=== PATIENT | male | born 1970 | race Caucasian/White ===

== ENCOUNTER 2019-07-06 19:10 | Observation (INO) | payer BC, OTHER ==
--- NOTE | 2019-07-06 20:31 | EDM.PDOC ---
ED HPI GENERAL MEDICAL PROBLEM - General Chief Complaint: Head Injury Time Seen by Provider: 07/06/19 19:20 Source of Information: Reports: Patient History Limitations: Reports: Altered Mental Status, Intoxication - History of Present Illness INITIAL COMMENTS - FREE TEXT/NARRATIVE: c/o head injury pt drinking alcohol, a little per pt, a lot per his friends, dropped off by a friend, pt and friend deny other drug use, THC denied pt was reaching for a door know when he lost his balance and fell backward, landing on his buttock, then his head hit the floor as he fell backward, LOC x 4 -5 min, "out cold", initial report of transient apnea denies by friend who had witnessed the event pt speaking slowly, not oriented lives alone, works as a welder fitter helper - Related Data Allergies Allergy/AdvReac Type Severity Reaction Status Date / Time Penicillins Allergy Rash Verified 07/06/19 19:17 Home Meds: Home Meds Losartan Potassium 50 mg DAILY 07/06/19 [History] ED ROS GENERAL - Review of Systems Review Of Systems: See Below Constitutional: Reports: No Symptoms HEENT: Reports: No Symptoms Respiratory: Reports: No Symptoms Cardiovascular: Reports: No Symptoms Endocrine: Reports: No Symptoms GI/Abdominal: Reports: No Symptoms : Reports: No Symptoms Musculoskeletal: Reports: No Symptoms Skin: Reports: No Symptoms Neurological: Reports: Headache, Other (headache no severe, no n/v) Psychiatric: Reports: No Symptoms Hematologic/Lymphatic: Reports: No Symptoms Immunologic: Reports: No Symptoms ED EXAM, HEAD INJURY - Physical Exam Exam: See Below Exam Limited By: Altered Mental Status General Appearance: Alert, WD/WN Head: Other (edema 6 x 6 x 1 cm with superficial abrasion at occiput, face NT) Eyes: Bilateral Eye: EOMI, PERRL Ears: Normal External Exam, Normal Canal, Hearing Grossly Normal Nose: Normal Inspection, Normal Mucousa, No Blood Throat/Mouth: Normal Inspection, Normal Lips, Normal Teeth, Normal Gums, Normal Oropharynx, Normal Voice, No Airway Compromise Neck: Non-Tender, Full Range of Motion, Normal Alignment, Normal Inspection. No : Muscle Spasm, Stiff Neck Respiratory: No Respiratory Distress, Lungs Clear, Normal Breath Sounds, Chest Non-Tender Cardiovascular: Regular Rate, Rhythm, No Edema, No Gallop, No Murmur, No Rub GI/Abdominal Exam: Soft, Non-Tender, No Distention Back Exam: Normal Inspection, Full Range of Motion. No: CVA Tenderness (R), CVA Tenderness (L) Extremities: Normal Inspection, Normal Range of Motion, Non-Tender, No Pedal Edema Neurologic: No Motor/Sensory Deficits, Alert, Normal Mood/Affect, Other ( rambling speech, confusion, mixes up topics, talks complete sentences, does not know month or year or date, knows where he is) Skin: Normal Color, Warm/Dry - [place] Coma Score Best Eye Response ([place]): (4) Open Spontaneously Best Verbal Response (Rajwinder): (4) Confused Conversation Best Motor Response ([place]): (6) Obeys Commands [place] Total: 14 Course - Orders/Labs/Meds Orders: Active Orders 24 hr Category Date Time Status EKG Documentation Completion [RC] ASDIRECTED Care 07/06/19 19:27 Active Cervical Spine wo Cont [CT] Stat Exams 07/06/19 19:28 Taken Head wo Cont [CT] Stat Exams 07/06/19 19:28 Ordered DRUG SCREEN, URINE ALERE [URCHEM] Stat Lab 07/06/19 19:26 Ordered UA W/MICROSCOPIC [URIN] Stat Lab 07/06/19 19:26 Ordered EKG 12 Lead [EK] Routine Ther 07/06/19 19:26 Ordered Labs: Laboratory Tests 07/06/19 07/06/19 07/06/19 Range/Units 20:00 20:00 20:00 WBC 5.0 (4.5-12.0) X10-3/uL RBC 5.37 (4.30-5.75) x10(6)uL Hgb 16.1 (13.5-17.8) g/dL Hct 47.6 (30.0-51.3) % MCV 88.6 (80-96) fL MCH 30.0 (27.7-33.6) pg MCHC 33.8 (32.2-35.4) g/dL RDW 12.5 (11.5-15.5) % Plt Count 255 (125-369) X10(3)uL MPV 7.7 (7.4-10.4) fL Neut % (Auto) 56.1 (46-82) % Lymph % (Auto) 32.2 (13-37) % [place] % (Auto) 10.4 (4-12) % Eos % (Auto) 1 (1.0-5.0) % Baso % (Auto) 1 (0-2) % Neut # (Auto) 2.9 (1.6-8.3) # Lymph # (Auto) 1.6 (0.6-5.0) # [place] # (Auto) 0.5 (0.0-1.3) # Eos # (Auto) 0.0 (0.0-0.8) # Baso # (Auto) 0.0 (0.0-0.2) # PT 9.7 (9.0-11.1) sec INR 1.00 (1.00-1.24) Sodium 142 (135-145) mmol/L Potassium 4.0 (3.5-5.3) mmol/L Chloride 105 (100-110) mmol/L Carbon Dioxide 23 (21-32) mmol/L BUN 9 (7-18) mg/dL Creatinine 0.8 (0.70-1.30) mg/dL Est Cr Clr Drug Dosing TNP Estimated GFR (MDRD) > 60 (>60) BUN/Creatinine Ratio 11.3 (9-20) Glucose 90 (80-116) mg/dL Calcium 8.4 L (8.6-10.2) mg/dL Total Bilirubin 0.3 (0.1-1.3) mg/dL AST 20 (5-25) IU/L ALT 25 (12-36) U/L Alkaline Phosphatase 59 (56-112) IU/L Troponin I (4.0-60.3) pg/mL Total Protein 7.6 (6.0-8.0) g/dL Albumin 4.1 (3.5-5.2) g/dL Globulin 3.5 g/dL Albumin/Globulin Ratio 1.2 Ethyl Alcohol (<0.03) % 07/06/19 07/06/19 Range/Units 20:00 20:00 WBC (4.5-12.0) X10-3/uL RBC (4.30-5.75) x10(6)uL Hgb (13.5-17.8) g/dL Hct (30.0-51.3) % MCV (80-96) fL MCH (27.7-33.6) pg MCHC (32.2-35.4) g/dL RDW (11.5-15.5) % Plt Count (125-369) X10(3)uL MPV (7.4-10.4) fL Neut % (Auto) (46-82) % Lymph % (Auto) (13-37) % [place] % (Auto) (4-12) % Eos % (Auto) (1.0-5.0) % Baso % (Auto) (0-2) % Neut # (Auto) (1.6-8.3) # Lymph # (Auto) (0.6-5.0) # [place] # (Auto) (0.0-1.3) # Eos # (Auto) (0.0-0.8) # Baso # (Auto) (0.0-0.2) # PT (9.0-11.1) sec INR (1.00-1.24) Sodium (135-145) mmol/L Potassium (3.5-5.3) mmol/L Chloride (100-110) mmol/L Carbon Dioxide (21-32) mmol/L BUN (7-18) mg/dL Creatinine (0.70-1.30) mg/dL Est Cr Clr Drug Dosing Estimated GFR (MDRD) (>60) BUN/Creatinine Ratio (9-20) Glucose (80-116) mg/dL Calcium (8.6-10.2) mg/dL Total Bilirubin (0.1-1.3) mg/dL AST (5-25) IU/L ALT (12-36) U/L Alkaline Phosphatase (56-112) IU/L Troponin I 6.6 (4.0-60.3) pg/mL Total Protein (6.0-8.0) g/dL Albumin (3.5-5.2) g/dL Globulin g/dL Albumin/Globulin Ratio Ethyl Alcohol 0.23 H* (<0.03) % - Re-Assessments/Exams Free Text/Narrative Re-Assessment/Exam: 07/06/19 21:24 no fx on head and cervical CTs, no acute hemorrhage pt remains quite confused, rambles when speaking, requiring one assist as he staggered on his feet bathroom, then dumped out his urinal after forgetting that nursing wanted it back not a safe d/c, extend of concussion or duration of recovery unknown, pt informed 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 at least 48 hours, possibly longer will admit to observation bed Departure - Departure Time of Disposition: 20:32 Disposition: Home, Self-Care 01 Condition: Good Clinical Impression: Concussion with less than 1 hour loss of consciousness, Head injury, Scalp abrasion, Acute alcohol intoxication, Fall from standing, Left ventricular hypertrophy by electrocardiogram, Incomplete right bundle branch block (RBBB), Scalp hematoma - Discharge Information *PRESCRIPTION DRUG MONITORING PROGRAM REVIEWED*: Not Applicable *COPY OF PRESCRIPTION DRUG MONITORING REPORT IN PATIENT GARY: Not Applicable Referrals: Pillo Giordano MD [Primary Care Provider] - Forms: ED Department Discharge Sepsis Event Note - Focused Exam Date Exam was Performed: 07/06/19 Time Exam was Performed: 20:32 - My Orders Last 24 Hours: My Active Orders 07/06/19 19:26 DRUG SCREEN, URINE ALERE [URCHEM] Stat UA W/MICROSCOPIC [URIN] Stat EKG 12 Lead [EK] Routine 07/06/19 19:27 EKG Documentation Completion [RC] ASDIRECTED 07/06/19 19:28 Cervical Spine wo Cont [CT] Stat Head wo Cont [CT] Stat - Assessment/Plan Last 24 Hours: My Active Orders 07/06/19 19:26 DRUG SCREEN, URINE ALERE [URCHEM] Stat UA W/MICROSCOPIC [URIN] Stat EKG 12 Lead [EK] Routine 07/06/19 19:27 EKG Documentation Completion [RC] ASDIRECTED 07/06/19 19:28 Cervical Spine wo Cont [CT] Stat Head wo Cont [CT] Stat
[2019-07-06] MEDS ORDERED: Ondansetron 4 MG/2 ML SDV IV PRN (22:00)
[2019-07-06] MEDS ORDERED: Ketorolac 30 MG/ML SDV IVPUSH SCH (22:00)
[2019-07-07] MEDS: Ketorolac 30 MG/ML SDV IVPUSH SCH ×2 (01:15→06:26)
[2019-07-07] MEDS: Sodium Chloride 0.9% 10 ML Syringe FLUSH PRN ×2 (01:15→06:26)
[2019-07-07] MEDS ORDERED: Acetaminophen 500 MG Tab PO SCH (09:00)
[2019-07-07] MEDS ORDERED: Losartan 50 MG Tab PO SCH (09:00)
--- NOTE | 2019-07-07 10:54 | PCM.HP.2 ---
H&P History of Present Illness - General Date of Service: 07/07/19 Admit Problem/Dx: Fall, head injury, concussion - History of Present Illness Initial Comments - Free Text/Narative: From ER provider: c/o head injury, pt drinking alcohol, a little per pt, a lot per his friends, dropped off by a friend, pt and friend deny other drug use, THC denied. pt was reaching for a door know when he lost his balance and fell backward, landing on his buttock, then his head hit the floor as he fell backward, LOC x 4-5 min, "out cold", initial report of transient apnea denies by friend who had witnessed the event. pt speaking slowly, not oriented, lives alone, works as a welder/fabricator. Patient this morning remembers going to friends and drinking some but doesn't remember what happened to cause the event, does not remember being in the ER and woke up in hospital. Denies any headaches, nausea, vomiting. Back of his head, right elbow and chest are sore. A nurse was at the house where he fell and was giving sternal rubs. History of hypertension but no history of concussions. Has been ambulating to the bathroom on his own without difficulty walking. R occipital region of head Pain Score (Numeric/FACES): 1 - Related Data Allergies/Adverse Reactions: Allergies Allergy/AdvReac Type Severity Reaction Status Date / Time Penicillins Allergy Rash Verified 07/06/19 19:17 Home Medications: Home Meds Losartan Potassium 50 mg DAILY 07/06/19 [History] Past Medical History Cardiovascular History: Reports: Hypertension Other Cardiovascular History: Recently started BP medication. Neurological History: Reports: Concussion - Infectious Disease History Infectious Disease History: Reports: Chicken Pox - Past Surgical History HEENT Surgical History: Reports: Other (See Below) Other HEENT Surgeries/Procedures: [place] teeth extraction in 1997. Social & Family History - Family History Family Medical History: Noncontributory - Tobacco Use Smoking Status *Q: Never Smoker - Caffeine Use Caffeine Use: Reports: None - Alcohol Use Days Per Week of Alcohol Use: 1 Number of Drinks Per Day: 2 Total Drinks Per Week: 2 - Recreational Drug Use Recreational Drug Use: No H&P Review of Systems - Review of Systems: Review Of Systems: Comprehensive ROS is negative, except as noted in HPI. Exam - Exam Exam: See Below - Vital Signs Vital Signs: Last Vital Signs Temp 98.2 F 07/07/19 08:00 Pulse 70 07/07/19 08:00 Resp 16 07/07/19 08:00 BP 169/107 H 07/07/19 08:00 Pulse Ox 95 07/07/19 08:00 Weight: 203 lb 6.4 oz - Exam General: Alert, Oriented, Cooperative HEENT: PERRLA, Conjunctiva Clear, EACs Clear, EOMI, Hearing Intact, Mucosa Moist & [place], Nares Patent, Normal Nasal Septum, Posterior Pharynx Clear, TMs Clear, Other (Still swelling on right occiput, TTP. No ecchymosis.) Neck: Supple, Trachea Midline, Lymphadenopathy Lungs: Clear to Auscultation, Normal Respiratory Effort, Other (TTP along sternum but no ecchymosis) Cardiovascular: Regular Rate, Regular Rhythm, Normal S1, Normal S2 GI/Abdominal Exam: Normal Bowel Sounds, Soft, Non-Tender, No Organomegaly, No Distention (Male) Exam: Deferred Rectal (Males) Exam: Deferred Extremities: No Pedal Edema Peripheral Pulses: 2+: Radial (L), Radial (R), Posterior Tibial (L), Posterior Tibial (R), Dorsalis Pedis (L), Dorsalis Pedis (R) Skin: Warm, Dry, Ecchymosis (right elbow) Neurological: Cranial Nerves Intact, Strength Equal Bilateral, Normal Speech, Normal Tone, Sensation Intact - Patient Data Lab Results Last 24 hrs: Laboratory Results - last 24 hr 07/06/19 07/06/19 07/06/19 Range/Units 20:00 20:00 20:00 WBC 5.0 (4.5-12.0) X10-3/uL RBC 5.37 (4.30-5.75) x10(6)uL Hgb 16.1 (13.5-17.8) g/dL Hct 47.6 (30.0-51.3) % MCV 88.6 (80-96) fL MCH 30.0 (27.7-33.6) pg MCHC 33.8 (32.2-35.4) g/dL RDW 12.5 (11.5-15.5) % Plt Count 255 (125-369) X10(3)uL MPV 7.7 (7.4-10.4) fL Neut % (Auto) 56.1 (46-82) % Lymph % (Auto) 32.2 (13-37) % [place] % (Auto) 10.4 (4-12) % Eos % (Auto) 1 (1.0-5.0) % Baso % (Auto) 1 (0-2) % Neut # (Auto) 2.9 (1.6-8.3) # Lymph # (Auto) 1.6 (0.6-5.0) # [place] # (Auto) 0.5 (0.0-1.3) # Eos # (Auto) 0.0 (0.0-0.8) # Baso # (Auto) 0.0 (0.0-0.2) # PT 9.7 (9.0-11.1) sec INR 1.00 (1.00-1.24) Sodium 142 (135-145) mmol/L Potassium 4.0 (3.5-5.3) mmol/L Chloride 105 (100-110) mmol/L Carbon Dioxide 23 (21-32) mmol/L BUN 9 (7-18) mg/dL Creatinine 0.8 (0.70-1.30) mg/dL Est Cr Clr Drug Dosing TNP Estimated GFR (MDRD) > 60 (>60) BUN/Creatinine Ratio 11.3 (9-20) Glucose 90 (80-116) mg/dL Calcium 8.4 L (8.6-10.2) mg/dL Total Bilirubin 0.3 (0.1-1.3) mg/dL AST 20 (5-25) IU/L ALT 25 (12-36) U/L Alkaline Phosphatase 59 (56-112) IU/L Troponin I (4.0-60.3) pg/mL NT-Pro-B Natriuret Pep (<=125) pg/mL Total Protein 7.6 (6.0-8.0) g/dL Albumin 4.1 (3.5-5.2) g/dL Globulin 3.5 g/dL Albumin/Globulin Ratio 1.2 Urine Color (YELLOW) Urine Appearance (CLEAR) Urine pH (5.0-6.5) Ur Specific [place] (1.010-1.025) Urine Protein (NEGATIVE) mg/dL Urine Glucose (UA) (NORMAL) mg/dL Urine Ketones (NEGATIVE) mg/dL Urine Occult Blood (NEGATIVE) Urine Nitrite (NEGATIVE) Urine Bilirubin (NEGATIVE) Urine Urobilinogen (NEGATIVE) mg/dL Ur Leukocyte Esterase (NEGATIVE) Urine RBC (0-5) Urine WBC (0-5) Ur Squamous Epith Cells (NS,R,O) Urine Bacteria (NS) Urine Opiates Screen (NEGATIVE) Ur Oxycodone Screen (NEGATIVE) Ur Propoxyphene Screen (NEGATIVE) Ur Barbituates Screen (NEGATIVE) Ur Tricyclics Screen (NEGATIVE) Ur Phencyclidine Scrn (NEGATIVE) Ur Amphetamine Screen (NEGATIVE) Urine MDMA Screen (NEGATIVE) U Benzodiazepines Scrn (NEGATIVE) U Cocaine Metab Screen (NEGATIVE) U Marijuana (THC) Screen (NEGATIVE) Ethyl Alcohol (<0.03) % 07/06/19 07/06/19 07/06/19 Range/Units 20:00 20:00 20:36 WBC (4.5-12.0) X10-3/uL RBC (4.30-5.75) x10(6)uL Hgb (13.5-17.8) g/dL Hct (30.0-51.3) % MCV (80-96) fL MCH (27.7-33.6) pg MCHC (32.2-35.4) g/dL RDW (11.5-15.5) % Plt Count (125-369) X10(3)uL MPV (7.4-10.4) fL Neut % (Auto) (46-82) % Lymph % (Auto) (13-37) % [place] % (Auto) (4-12) % Eos % (Auto) (1.0-5.0) % Baso % (Auto) (0-2) % Neut # (Auto) (1.6-8.3) # Lymph # (Auto) (0.6-5.0) # [place] # (Auto) (0.0-1.3) # Eos # (Auto) (0.0-0.8) # Baso # (Auto) (0.0-0.2) # PT (9.0-11.1) sec INR (1.00-1.24) Sodium (135-145) mmol/L Potassium (3.5-5.3) mmol/L Chloride (100-110) mmol/L Carbon Dioxide (21-32) mmol/L BUN (7-18) mg/dL Creatinine (0.70-1.30) mg/dL Est Cr Clr Drug Dosing Estimated GFR (MDRD) (>60) BUN/Creatinine Ratio (9-20) Glucose (80-116) mg/dL Calcium (8.6-10.2) mg/dL Total Bilirubin (0.1-1.3) mg/dL AST (5-25) IU/L ALT (12-36) U/L Alkaline Phosphatase (56-112) IU/L Troponin I 6.6 (4.0-60.3) pg/mL NT-Pro-B Natriuret Pep 89 (<=125) pg/mL Total Protein (6.0-8.0) g/dL Albumin (3.5-5.2) g/dL Globulin g/dL Albumin/Globulin Ratio Urine Color (YELLOW) Urine Appearance (CLEAR) Urine pH (5.0-6.5) Ur Specific [place] (1.010-1.025) Urine Protein (NEGATIVE) mg/dL Urine Glucose (UA) (NORMAL) mg/dL Urine Ketones (NEGATIVE) mg/dL Urine Occult Blood (NEGATIVE) Urine Nitrite (NEGATIVE) Urine Bilirubin (NEGATIVE) Urine Urobilinogen (NEGATIVE) mg/dL Ur Leukocyte Esterase (NEGATIVE) Urine RBC (0-5) Urine WBC (0-5) Ur Squamous Epith Cells (NS,R,O) Urine Bacteria (NS) Urine Opiates Screen (NEGATIVE) Ur Oxycodone Screen (NEGATIVE) Ur Propoxyphene Screen (NEGATIVE) Ur Barbituates Screen (NEGATIVE) Ur Tricyclics Screen (NEGATIVE) Ur Phencyclidine Scrn (NEGATIVE) Ur Amphetamine Screen (NEGATIVE) Urine MDMA Screen (NEGATIVE) U Benzodiazepines Scrn (NEGATIVE) U Cocaine Metab Screen (NEGATIVE) U Marijuana (THC) Screen (NEGATIVE) Ethyl Alcohol 0.23 H* (<0.03) % 07/06/19 07/06/19 Range/Units 22:25 22:25 WBC (4.5-12.0) X10-3/uL RBC (4.30-5.75) x10(6)uL Hgb (13.5-17.8) g/dL Hct (30.0-51.3) % MCV (80-96) fL MCH (27.7-33.6) pg MCHC (32.2-35.4) g/dL RDW (11.5-15.5) % Plt Count (125-369) X10(3)uL MPV (7.4-10.4) fL Neut % (Auto) (46-82) % Lymph % (Auto) (13-37) % [place] % (Auto) (4-12) % Eos % (Auto) (1.0-5.0) % Baso % (Auto) (0-2) % Neut # (Auto) (1.6-8.3) # Lymph # (Auto) (0.6-5.0) # [place] # (Auto) (0.0-1.3) # Eos # (Auto) (0.0-0.8) # Baso # (Auto) (0.0-0.2) # PT (9.0-11.1) sec INR (1.00-1.24) Sodium (135-145) mmol/L Potassium (3.5-5.3) mmol/L Chloride (100-110) mmol/L Carbon Dioxide (21-32) mmol/L BUN (7-18) mg/dL Creatinine (0.70-1.30) mg/dL Est Cr Clr Drug Dosing Estimated GFR (MDRD) (>60) BUN/Creatinine Ratio (9-20) Glucose (80-116) mg/dL Calcium (8.6-10.2) mg/dL Total Bilirubin (0.1-1.3) mg/dL AST (5-25) IU/L ALT (12-36) U/L Alkaline Phosphatase (56-112) IU/L Troponin I (4.0-60.3) pg/mL NT-Pro-B Natriuret Pep (<=125) pg/mL Total Protein (6.0-8.0) g/dL Albumin (3.5-5.2) g/dL Globulin g/dL Albumin/Globulin Ratio Urine Color Yellow (YELLOW) Urine Appearance Clear (CLEAR) Urine pH 5.0 (5.0-6.5) Ur Specific [place] 1.005 L (1.010-1.025) Urine Protein Negative (NEGATIVE) mg/dL Urine Glucose (UA) Normal (NORMAL) mg/dL Urine Ketones Negative (NEGATIVE) mg/dL Urine Occult Blood Negative (NEGATIVE) Urine Nitrite Negative (NEGATIVE) Urine Bilirubin Negative (NEGATIVE) Urine Urobilinogen Normal (NEGATIVE) mg/dL Ur Leukocyte Esterase Negative (NEGATIVE) Urine RBC Not seen (0-5) Urine WBC 0-5 (0-5) Ur Squamous Epith Cells Rare (NS,R,O) Urine Bacteria Rare H (NS) Urine Opiates Screen Negative (NEGATIVE) Ur Oxycodone Screen Negative (NEGATIVE) Ur Propoxyphene Screen Negative (NEGATIVE) Ur Barbituates Screen Negative (NEGATIVE) Ur Tricyclics Screen Negative (NEGATIVE) Ur Phencyclidine Scrn Negative (NEGATIVE) Ur Amphetamine Screen Negative (NEGATIVE) Urine MDMA Screen Negative (NEGATIVE) U Benzodiazepines Scrn Negative (NEGATIVE) U Cocaine Metab Screen Negative (NEGATIVE) U Marijuana (THC) Screen Negative (NEGATIVE) Ethyl Alcohol (<0.03) % Result Diagrams: 07/06/19 20:00 07/06/19 20:00 Imaging Impressions Last 24 hrs: CT head & C-spine: negative for fractures or acute hemorrhage. Sepsis Event Note - Evaluation Sepsis Screening Result: No Definite Risk - Focused Exam Vital Signs: Vital Signs Temp Pulse Pulse Resp BP Pulse Ox 07/07/19 08:00 98.2 F 70 16 169/107 H 95 07/07/19 06:30 98.4 F 75 18 140/88 96 07/07/19 01:15 98.3 F 83 18 116/75 95 Date Exam was Performed: 07/07/19 Time Exam was Performed: 10:48 - Problem List (1) Concussion with less than 1 hour loss of consciousness SNOMED Code(s): 536735963 ICD Code: S06.0X9A - CONCUSSION W LOSS OF CONSCIOUSNESS OF UNSP DURATION, INIT Status: Acute Current Visit: Yes (2) Acute alcohol intoxication SNOMED Code(s): 10464900, 94070896 ICD Code: F10.929 - ALCOHOL USE, UNSPECIFIED WITH INTOXICATION, UNSPECIFIED Status: Resolved Current Visit: Yes (3) Fall from standing SNOMED Code(s): 1949344 ICD Code: W19.XXXA - UNSPECIFIED FALL, INITIAL ENCOUNTER Status: Acute Current Visit: Yes (4) Head injury SNOMED Code(s): 49426613 ICD Code: S09.90XA - UNSPECIFIED INJURY OF HEAD, INITIAL ENCOUNTER Status: Acute Current Visit: Yes (5) Hypertension SNOMED Code(s): 92565589 ICD Code: I10 - ESSENTIAL (PRIMARY) HYPERTENSION Status: Chronic Current Visit: Yes Qualifiers: Hypertension type: essential hypertension Qualified Code(s): I10 - Essential (primary) hypertension Problem List Initiated/Reviewed/Updated: Yes Orders Last 24hrs: Active Orders 24 hr Category Date Time Status Admission Status [Patient Status] [ADT] Routine ADT 07/06/19 21:30 Active Ambulate [RC] PER UNIT ROUTINE Care 07/07/19 09:27 Active Neuro Check [RC] Q2H Care 07/06/19 22:00 Active Ready for Discharge [RC] PER UNIT ROUTINE Care 07/07/19 10:47 Ordered Up With Assistance [RC] ASDIRECTED Care 07/06/19 22:00 Active Vital Signs [RC] 00,04,08,12,16,20 Care 07/06/19 22:00 Active Regular Diet [DIET] Diet 07/07/19 Breakfast Active Cervical Spine wo Cont [CT] Stat Exams 07/06/19 19:28 Taken Head wo Cont [CT] Stat Exams 07/06/19 19:28 Ordered Acetaminophen [Tylenol Extra Strength] Med 07/07/19 09:00 Active 1,000 mg PO QID Ketorolac [Toradol] Med 07/07/19 01:00 Active 30 mg IVPUSH Q6H Losartan [Cozaar] Med 07/07/19 09:00 Active 50 mg PO DAILY Ondansetron [Zofran] Med 07/06/19 22:00 Active 4 mg IV Q4H PRN Sodium Chloride 0.9% [Saline Flush] Med 07/07/19 01:00 Active 10 ml FLUSH ASDIRECTED PRN Resuscitation Status Routine Resus Stat 07/06/19 22:00 Ordered EKG 12 Lead [EK] Routine Ther 07/06/19 19:26 Ordered Medication Orders Acetaminophen (Tylenol Extra Strength) 1,000 mg PO QID GUILLERMO Last Admin: 07/07/19 10:45 Dose: Not Given Ketorolac Tromethamine (Toradol) 30 mg IVPUSH Q6H GUILLERMO Last Admin: 07/07/19 06:26 Dose: 30 mg Admin: 07/07/19 01:15 Dose: 30 mg Losartan Potassium (Cozaar) 50 mg PO DAILY [facility] Last Admin: 07/07/19 10:43 Dose: Ondansetron HCl (Zofran) 4 mg IV Q4H PRN PRN Reason: Nausea/Vomiting Sodium Chloride (Saline Flush) 10 ml FLUSH ASDIRECTED PRN PRN Reason: Keep Vein Open Last Admin: 07/07/19 06:26 Dose: 10 ml Admin: 07/07/19 01:15 Dose: 10 ml Assessment/Plan Comment:: 1. Admit for observation for concussion, alcohol intoxication. 2. Neurochecks with vitals. 3. Continue Home meds. 4. FULL CODE. 5. Discharge later today. - Mortality Measure Prognosis:: Good
--- NOTE | 2019-07-07 11:11 | PCM.DCSUM1 ---
Discharge Summary - Hospital Course HPI Initial Comments: From ER provider: c/o head injury, pt drinking alcohol, a little per pt, a lot per his friends, dropped off by a friend, pt and friend deny other drug use, THC denied. pt was reaching for a door know when he lost his balance and fell backward, landing on his buttock, then his head hit the floor as he fell backward, LOC x 4-5 min, "out cold", initial report of transient apnea denies by friend who had witnessed the event. pt speaking slowly, not oriented, lives alone, works as a aluminum welder. Patient this morning remembers going to friends and drinking some but doesn't remember what happened to cause the event, does not remember being in the ER and woke up in hospital. Denies any headaches, nausea, vomiting. Back of his head, right elbow and chest are sore. A nurse was at the house where he fell and was giving sternal rubs. History of hypertension but no history of concussions. Has been ambulating to the bathroom on his own without difficulty walking. Diagnosis: Stroke: No - Discharge Data Discharge Date: 07/07/19 Discharge Disposition: Home, Self-Care 01 Condition: Good - Referral to Home Health Primary Care Physician: Pillo Giordano MD - Discharge Diagnosis/Problem(s) (1) Concussion with less than 1 hour loss of consciousness SNOMED Code(s): 553261716 ICD Code: S06.0X9A - CONCUSSION W LOSS OF CONSCIOUSNESS OF UNSP DURATION, INIT Status: Acute Current Visit: Yes (2) Acute alcohol intoxication SNOMED Code(s): 70242195, 67660401 ICD Code: F10.929 - ALCOHOL USE, UNSPECIFIED WITH INTOXICATION, UNSPECIFIED Status: Resolved Current Visit: Yes (3) Fall from standing SNOMED Code(s): 3697182 ICD Code: W19.XXXA - UNSPECIFIED FALL, INITIAL ENCOUNTER Status: Acute Current Visit: Yes (4) Head injury SNOMED Code(s): 40558497 ICD Code: S09.90XA - UNSPECIFIED INJURY OF HEAD, INITIAL ENCOUNTER Status: Acute Current Visit: Yes (5) Hypertension SNOMED Code(s): 66986589 ICD Code: I10 - ESSENTIAL (PRIMARY) HYPERTENSION Status: Chronic Current Visit: Yes Qualifiers: Hypertension type: essential hypertension Qualified Code(s): I10 - Essential (primary) hypertension - Patient Summary/Data Hospital Course: Patient admitted overnight for observation for concussion with brief loss of consciousness, fall, acute alcohol intoxication. Neurochecks were normal. Alert and oriented this morning. No complaints of headache, dizziness, nausea or vomiting. Back of his head, elbow and chest are sore. Feels tired, works manager night. Ambulating to bathroom independently. Recalls going to friends but not fall itself or time in ER. Neuro exam today within normal limits. Will discharge today. - Patient Instructions Diet: Heart Healthy Diet, Regular Diet as Tolerated Activity: Rest and Relax Today Driving: Do Not Drive Showering/Bathing: May Shower Notify Provider of: Increased Pain Other/Special Instructions: Follow up with Dr Giordano in 1 week, sooner if you have persistent headache, change in personality or nausea/vomiting. Return to work after 48 hours, rest your body and brain; limit TV, computer/phone use, reading. Slowly resume regular activities. - Discharge Plan *PRESCRIPTION DRUG MONITORING PROGRAM REVIEWED*: Not Applicable *COPY OF PRESCRIPTION DRUG MONITORING REPORT IN PATIENT GARY: Not Applicable Home Medications: Home Meds Losartan Potassium 50 mg DAILY 07/06/19 [History] Patient Handouts: Concussion, Adult Forms: ED Department Discharge Referrals: Pillo Giordano MD [Primary Care Provider] - - Discharge Summary/Plan Comment DC Time >30 min.: No - Patient Data Vitals - Most Recent: Last Vital Signs Temp 98.2 F 07/07/19 08:00 Pulse 70 07/07/19 08:00 Resp 16 07/07/19 08:00 BP 169/107 H 07/07/19 08:00 Pulse Ox 95 07/07/19 08:00 Weight - Most Recent: 203 lb 6.4 oz I&O - Last 24 hours: Intake & Output 07/06/19 07/07/19 07/07/19 22:59 06:59 14:59 Intake Total 200 Output Total 0 Balance 200 Lab Results - Last 24 hrs: Laboratory Results - last 24 hr 07/06/19 07/06/19 07/06/19 Range/Units 20:00 20:00 20:00 WBC 5.0 (4.5-12.0) X10-3/uL RBC 5.37 (4.30-5.75) x10(6)uL Hgb 16.1 (13.5-17.8) g/dL Hct 47.6 (30.0-51.3) % MCV 88.6 (80-96) fL MCH 30.0 (27.7-33.6) pg MCHC 33.8 (32.2-35.4) g/dL RDW 12.5 (11.5-15.5) % Plt Count 255 (125-369) X10(3)uL MPV 7.7 (7.4-10.4) fL Neut % (Auto) 56.1 (46-82) % Lymph % (Auto) 32.2 (13-37) % Rush % (Auto) 10.4 (4-12) % Eos % (Auto) 1 (1.0-5.0) % Baso % (Auto) 1 (0-2) % Neut # (Auto) 2.9 (1.6-8.3) # Lymph # (Auto) 1.6 (0.6-5.0) # Rush # (Auto) 0.5 (0.0-1.3) # Eos # (Auto) 0.0 (0.0-0.8) # Baso # (Auto) 0.0 (0.0-0.2) # PT 9.7 (9.0-11.1) sec INR 1.00 (1.00-1.24) Sodium 142 (135-145) mmol/L Potassium 4.0 (3.5-5.3) mmol/L Chloride 105 (100-110) mmol/L Carbon Dioxide 23 (21-32) mmol/L BUN 9 (7-18) mg/dL Creatinine 0.8 (0.70-1.30) mg/dL Est Cr Clr Drug Dosing TNP Estimated GFR (MDRD) > 60 (>60) BUN/Creatinine Ratio 11.3 (9-20) Glucose 90 (80-116) mg/dL Calcium 8.4 L (8.6-10.2) mg/dL Total Bilirubin 0.3 (0.1-1.3) mg/dL AST 20 (5-25) IU/L ALT 25 (12-36) U/L Alkaline Phosphatase 59 (56-112) IU/L Troponin I (4.0-60.3) pg/mL NT-Pro-B Natriuret Pep (<=125) pg/mL Total Protein 7.6 (6.0-8.0) g/dL Albumin 4.1 (3.5-5.2) g/dL Globulin 3.5 g/dL Albumin/Globulin Ratio 1.2 Urine Color (YELLOW) Urine Appearance (CLEAR) Urine pH (5.0-6.5) Ur Specific [place] (1.010-1.025) Urine Protein (NEGATIVE) mg/dL Urine Glucose (UA) (NORMAL) mg/dL Urine Ketones (NEGATIVE) mg/dL Urine Occult Blood (NEGATIVE) Urine Nitrite (NEGATIVE) Urine Bilirubin (NEGATIVE) Urine Urobilinogen (NEGATIVE) mg/dL Ur Leukocyte Esterase (NEGATIVE) Urine RBC (0-5) Urine WBC (0-5) Ur Squamous Epith Cells (NS,R,O) Urine Bacteria (NS) Urine Opiates Screen (NEGATIVE) Ur Oxycodone Screen (NEGATIVE) Ur Propoxyphene Screen (NEGATIVE) Ur Barbituates Screen (NEGATIVE) Ur Tricyclics Screen (NEGATIVE) Ur Phencyclidine Scrn (NEGATIVE) Ur Amphetamine Screen (NEGATIVE) Urine MDMA Screen (NEGATIVE) U Benzodiazepines Scrn (NEGATIVE) U Cocaine Metab Screen (NEGATIVE) U Marijuana (THC) Screen (NEGATIVE) Ethyl Alcohol (<0.03) % 07/06/19 07/06/19 07/06/19 Range/Units 20:00 20:00 20:36 WBC (4.5-12.0) X10-3/uL RBC (4.30-5.75) x10(6)uL Hgb (13.5-17.8) g/dL Hct (30.0-51.3) % MCV (80-96) fL MCH (27.7-33.6) pg MCHC (32.2-35.4) g/dL RDW (11.5-15.5) % Plt Count (125-369) X10(3)uL MPV (7.4-10.4) fL Neut % (Auto) (46-82) % Lymph % (Auto) (13-37) % Rush % (Auto) (4-12) % Eos % (Auto) (1.0-5.0) % Baso % (Auto) (0-2) % Neut # (Auto) (1.6-8.3) # Lymph # (Auto) (0.6-5.0) # Rush # (Auto) (0.0-1.3) # Eos # (Auto) (0.0-0.8) # Baso # (Auto) (0.0-0.2) # PT (9.0-11.1) sec INR (1.00-1.24) Sodium (135-145) mmol/L Potassium (3.5-5.3) mmol/L Chloride (100-110) mmol/L Carbon Dioxide (21-32) mmol/L BUN (7-18) mg/dL Creatinine (0.70-1.30) mg/dL Est Cr Clr Drug Dosing Estimated GFR (MDRD) (>60) BUN/Creatinine Ratio (9-20) Glucose (80-116) mg/dL Calcium (8.6-10.2) mg/dL Total Bilirubin (0.1-1.3) mg/dL AST (5-25) IU/L ALT (12-36) U/L Alkaline Phosphatase (56-112) IU/L Troponin I 6.6 (4.0-60.3) pg/mL NT-Pro-B Natriuret Pep 89 (<=125) pg/mL Total Protein (6.0-8.0) g/dL Albumin (3.5-5.2) g/dL Globulin g/dL Albumin/Globulin Ratio Urine Color (YELLOW) Urine Appearance (CLEAR) Urine pH (5.0-6.5) Ur Specific [place] (1.010-1.025) Urine Protein (NEGATIVE) mg/dL Urine Glucose (UA) (NORMAL) mg/dL Urine Ketones (NEGATIVE) mg/dL Urine Occult Blood (NEGATIVE) Urine Nitrite (NEGATIVE) Urine Bilirubin (NEGATIVE) Urine Urobilinogen (NEGATIVE) mg/dL Ur Leukocyte Esterase (NEGATIVE) Urine RBC (0-5) Urine WBC (0-5) Ur Squamous Epith Cells (NS,R,O) Urine Bacteria (NS) Urine Opiates Screen (NEGATIVE) Ur Oxycodone Screen (NEGATIVE) Ur Propoxyphene Screen (NEGATIVE) Ur Barbituates Screen (NEGATIVE) Ur Tricyclics Screen (NEGATIVE) Ur Phencyclidine Scrn (NEGATIVE) Ur Amphetamine Screen (NEGATIVE) Urine MDMA Screen (NEGATIVE) U Benzodiazepines Scrn (NEGATIVE) U Cocaine Metab Screen (NEGATIVE) U Marijuana (THC) Screen (NEGATIVE) Ethyl Alcohol 0.23 H* (<0.03) % 07/06/19 07/06/19 Range/Units 22:25 22:25 WBC (4.5-12.0) X10-3/uL RBC (4.30-5.75) x10(6)uL Hgb (13.5-17.8) g/dL Hct (30.0-51.3) % MCV (80-96) fL MCH (27.7-33.6) pg MCHC (32.2-35.4) g/dL RDW (11.5-15.5) % Plt Count (125-369) X10(3)uL MPV (7.4-10.4) fL Neut % (Auto) (46-82) % Lymph % (Auto) (13-37) % Rush % (Auto) (4-12) % Eos % (Auto) (1.0-5.0) % Baso % (Auto) (0-2) % Neut # (Auto) (1.6-8.3) # Lymph # (Auto) (0.6-5.0) # Rush # (Auto) (0.0-1.3) # Eos # (Auto) (0.0-0.8) # Baso # (Auto) (0.0-0.2) # PT (9.0-11.1) sec INR (1.00-1.24) Sodium (135-145) mmol/L Potassium (3.5-5.3) mmol/L Chloride (100-110) mmol/L Carbon Dioxide (21-32) mmol/L BUN (7-18) mg/dL Creatinine (0.70-1.30) mg/dL Est Cr Clr Drug Dosing Estimated GFR (MDRD) (>60) BUN/Creatinine Ratio (9-20) Glucose (80-116) mg/dL Calcium (8.6-10.2) mg/dL Total Bilirubin (0.1-1.3) mg/dL AST (5-25) IU/L ALT (12-36) U/L Alkaline Phosphatase (56-112) IU/L Troponin I (4.0-60.3) pg/mL NT-Pro-B Natriuret Pep (<=125) pg/mL Total Protein (6.0-8.0) g/dL Albumin (3.5-5.2) g/dL Globulin g/dL Albumin/Globulin Ratio Urine Color Yellow (YELLOW) Urine Appearance Clear (CLEAR) Urine pH 5.0 (5.0-6.5) Ur Specific [place] 1.005 L (1.010-1.025) Urine Protein Negative (NEGATIVE) mg/dL Urine Glucose (UA) Normal (NORMAL) mg/dL Urine Ketones Negative (NEGATIVE) mg/dL Urine Occult Blood Negative (NEGATIVE) Urine Nitrite Negative (NEGATIVE) Urine Bilirubin Negative (NEGATIVE) Urine Urobilinogen Normal (NEGATIVE) mg/dL Ur Leukocyte Esterase Negative (NEGATIVE) Urine RBC Not seen (0-5) Urine WBC 0-5 (0-5) Ur Squamous Epith Cells Rare (NS,R,O) Urine Bacteria Rare H (NS) Urine Opiates Screen Negative (NEGATIVE) Ur Oxycodone Screen Negative (NEGATIVE) Ur Propoxyphene Screen Negative (NEGATIVE) Ur Barbituates Screen Negative (NEGATIVE) Ur Tricyclics Screen Negative (NEGATIVE) Ur Phencyclidine Scrn Negative (NEGATIVE) Ur Amphetamine Screen Negative (NEGATIVE) Urine MDMA Screen Negative (NEGATIVE) U Benzodiazepines Scrn Negative (NEGATIVE) U Cocaine Metab Screen Negative (NEGATIVE) U Marijuana (THC) Screen Negative (NEGATIVE) Ethyl Alcohol (<0.03) % Med Orders - Current: Current Medications Acetaminophen (Tylenol Extra Strength) 1,000 mg PO QID [facility] Last Admin: 07/07/19 10:45 Dose: Not Given Ketorolac Tromethamine (Toradol) 30 mg IVPUSH Q6H [facility] Last Admin: 07/07/19 06:26 Dose: 30 mg Losartan Potassium (Cozaar) 50 mg PO DAILY [facility] Last Admin: 07/07/19 10:43 Dose: Not Given Ondansetron HCl (Zofran) 4 mg IV Q4H PRN PRN Reason: Nausea/Vomiting Sodium Chloride (Saline Flush) 10 ml FLUSH ASDIRECTED PRN PRN Reason: Keep Vein Open Last Admin: 07/07/19 06:26 Dose: 10 ml Discontinued Medications Ketorolac Tromethamine (Toradol) 30 mg IVPUSH Q6H [facility] Stop: 07/11/19 22:03 Last Admin: 07/07/19 01:09 Dose: Not Given
== END 2019-07-07 11:08 | disposition home or self-care (01) ==
LOC: FB.ED 19:10 → FB.MS 21:25
PROVIDERS: ADMIT Emergency Medicine; ATTEND Family Medicine
DX: S06.0X1A Concussion with loss of consciousness of 30 minutes or less, initial encounter (principal); F10.129 Alcohol abuse with intoxication, unspecified; I45.10 Unspecified right bundle-branch block; I11.9 Hypertensive heart disease without heart failure; Y90.1 Blood alcohol level of 20-39 mg/100 ml; Z88.0 Allergy status to penicillin; Z79.899 Other long term (current) drug therapy; W01.198A Fall on same level from slipping, tripping and stumbling with subsequent striking against other object, initial encounter
CPT/HCPCS: 36415; 70450; 72125; 80053; 80305; 80307; 81001; 83880; 84484; 85025; 85610; 93005; 96374; 96376; 99285; G0378; J1885